=== PATIENT | male | born 1965 | race Caucasian/White ===

== ENCOUNTER 2019-06-01 17:34 | Emergency (ER) | payer SELFPAY ==
[~2019-06-01] VITALS: Ht 177.8 cm; Wt 74.8 kg
[2019-06-01] MEDS ORDERED: IV NORMAL SALINE 1,000ML 1,000 ML IV ONE (18:15)
--- NOTE | 2019-06-01 18:28 | PHYS DOC ---
Adult General Chief Complaint Chief Complaint: NOSEBLEED [facility] HPI 54-year-old male presents with nosebleed. The patient states that his nose is swollen and just started bleeding spontaneously. There is a picture of blood on the tile floor at his house. The patient denies any falls, but has a 1 cm laceration in his lower lip. He tells me he does not know how he got a laceration on his lip. His significant other does not know what happened. The patient is alert, oriented, answering all questions appropriately. He denies numbness, tingling, altered sensation. His nose is no longer bleeding. The patient has no other complaints. Review of Systems Review of Systems Constitutional: Denies fever or chills [] Eyes: Denies change in visual acuity, redness, or eye pain [] HENT: Nosebleed, laceration lower lip[] Respiratory: Denies cough or shortness of breath [] Cardiovascular: No additional information not addressed in HPI [] GI: Denies abdominal pain, nausea, vomiting, bloody stools or diarrhea [] : Denies dysuria or hematuria [] Musculoskeletal: Denies back pain or joint pain [] Integument: Denies rash or skin lesions [] Neurologic: Denies headache, focal weakness or sensory changes [] Endocrine: Denies polyuria or polydipsia [] All other systems were reviewed and found to be within normal limits, except as documented in this note. Current Medications Current Medications Current Medications Medications (Trade) Dose Ordered Sig/Janell Start Time Stop Time Status Last Admin Dose Admin Sodium Chloride 1,000 ml @ 1,000 mls/hr 1X ONCE 06/01/19 18:15 06/01/19 19:14 Allergies Allergies Allergies Coded Allergies Type Severity Reaction Last Updated Verified diphenhydramine Allergy Unknown Hives 06/01/19 Yes lisinopril Allergy Unknown Anaphylaxis 06/01/19 Yes Uncoded Allergies Type Severity Reaction Last Updated Verified benadr Allergy Unknown Hives 06/01/19 Physical Exam Physical Exam Constitutional: Well developed, well nourished, no acute distress, non-toxic appearance. [] HENT:Appears mildly swollen, no obvious deformity. Recently dried blood in bilateral nares. 1 cm laceration of the lower lip within the vermilion border. Not bleeding.[] Eyes: PERRLA, EOMI, conjunctiva normal, no discharge. [] Neck: Normal range of motion, no tenderness, supple, no stridor. [] Cardiovascular:Heart rate regular rhythm, no murmur [] Lungs & Thorax: Bilateral breath sounds clear to auscultation [] Abdomen: Bowel sounds normal, soft, no tenderness, no masses, no pulsatile masses. [] Skin: Warm, dry, no erythema, no rash. [] Back: No tenderness, no CVA tenderness. [] Extremities: No tenderness, no cyanosis, no clubbing, ROM intact, no edema. [] Neurologic: Alert and oriented X 3, normal motor function, normal sensory function, no focal deficits noted. [] Psychologic: Affect normal, judgement normal, mood normal. [] EKG EKG [] Radiology/Procedures Radiology/Procedures [] Impressions: Preliminary interpretation facial x-rays: No acute fractures are seen. Course & Med Decision Making Course & Med Decision Making Pertinent Labs and Imaging studies reviewed. (See chart for details) The patient appears to have fallen or been hit with something. He denies this. He is acting appropriately. He does not complain of any neck pain. He has no altered sensation. He could be intoxicated, but is able to answer all questions appropriately and has ambulated without difficulty. The patient does not want me to repair his lip laceration. I will order basic labs and facial x-rays. He is tachycardic as well so I will give him some IV fluids. He has refused further workup at this time. The patient's labs are significant or elevated liver enzymes and MCV. Suspect the patient regularly drinks alcohol despite his denial. He is clinically sober enough to go home. His facial x-rays are unremarkable. Since he does not want me to repair his laceration, he is stable for discharge at this time. [] Dragon Disclaimer Dragon Disclaimer This electronic medical record was generated, in whole or in part, using a voice recognition dictation system. Departure Departure: Impression: Primary Impression: Acute anterior epistaxis Additional Impression: Laceration of lower lip Disposition: HOME, SELF-CARE Condition: STABLE Referrals: LISA ZARATE (PCP) Patient Instructions: Facial Laceration, [id number], Nosebleed, [id number] Problem Qualifiers Additional Impression: Laceration of lower lip Encounter type: initial encounter Qualified Codes: S01.511A - Laceration without foreign body of lip, initial encounter KIRILL YOUNG DO Jun 01, 2019 18:28
[2019-06-01 18:55] LABS: BASO % 0 % (0-3); EOS % 0 % (0-3); HEMATOCRIT 46.4 % (39.0-53.0); HEMOGLOBIN 15.8 g/dL (13.0-17.5); LYMPH # 1.5 x10^3/uL (1.0-4.8); LYMPH % 14 % (24-48); MEAN CORPUSCULAR HEMOGLOBIN 37 pg (25-35); MEAN CORPUSCULAR HGB CONC 34 g/dL (31-37); MEAN CORPUSCULAR VOLUME 108 fL (79-100); MONO % 10 % (0-9); NEUT # 7.9 x10^3uL (1.8-7.7); NEUT % 76 % (31-73); PLATELET COUNT 327 x10^3/uL (140-400); RED BLOOD COUNT 4.29 x10^6/uL (4.30-5.70); RED CELL DISTRIBUTION WIDTH 13.1 % (11.5-14.5); WHITE BLOOD COUNT 10.4 x10^3/uL (4.0-11.0)
[2019-06-01] MEDS ORDERED: DIPHTH,PERTUSS(ACELL),TET TOX 0.5 ML DISP.SYRIN. VAX IM ONE (19:00)
[2019-06-01 19:04] VITALS: BP 133/99
[2019-06-01 19:15] LABS: ALBUMIN/GLOBULIN RATIO 0.8 (1.0-1.7); CALCIUM 8.4 mg/dL (8.5-10.1); GFR 77.3; POTASSIUM 3.8 mmol/L (3.5-5.1); TOTAL BILIRUBIN 0.4 mg/dL (0.2-1.0); TOTAL PROTEIN 6.9 g/dL (6.4-8.2)
--- NOTE | 2019-06-02 00:51 | RAD ---
Examination: 3 views of the facial bones HISTORY: History of fall, bloody nose COMPARISON: None available Findings/ impression: The visualized paranasal sinuses appear unopacified. No evidence of displaced nasal bone fracture identified.. Electronically signed by: Terrell Koroma MD (06/02/2019 12:48 AM) [facility]
== END 2019-06-01 18:45 | disposition home or self-care (01) ==
LOC: ER 17:34
DX: S01.511A Laceration without foreign body of lip, initial encounter (principal); X58.XXXA Exposure to other specified factors, initial encounter; Y93.89 Activity, other specified; Y92.89 Other specified places as the place of occurrence of the external cause; Y99.8 Other external cause status; R04.0 Epistaxis; Z88.8 Allergy status to other drugs, medicaments and biological substances
CPT/HCPCS: 36415; 70150; 80053; 85025; 90471; 90715; 99285-25; J7030

== ENCOUNTER 2020-06-13 15:57 | Emergency (ER) | payer SELFPAY ==
[~2020-06-13] VITALS: Ht 179.1 cm; Wt 72.7 kg
--- NOTE | 2020-06-13 16:14 | PHYS DOC ---
Past History Past Medical History: Hypertension Past Surgical History: Other Additional Past Surgical Histo: right foot crush injury with hardware. Alcohol Use: Occasionally Drug Use: Marijuana Adult General Chief Complaint Chief Complaint: HEAD INJURY/TRAUMA HPI HPI Patient is a 55-year-old male who presents for mechanical fall and subsequent laceration to right head. Onset was within 30 minutes prior to arrival. Was ambulating down stairs when he tripped on shoelace and fell down approximately 6 stairs, he caught his body initially with his left hand but then hit his right temporal lobe area on wooden trim of the window frame. No loss of consciousness, confusion, seizure or memory impairment reported but patient admitted headache and blood loss that resolved after approximately 15 minutes of steady pressure. States he lost less than 4 ounces of overall blood patient reports ongoing headache, and generalized neck pain without any other concerning signs or symptoms such as vomiting, numbness and weakness or fever. Is not on any blood thinners. Vaccines are up-to-date. Review of Systems Review of Systems Fourteen body systems of review of systems have been reviewed. See HPI for pertinent positives and negative responses, other maddox all other systems are negative, non-pertinent or non-contributory Allergies Allergies Allergies Coded Allergies Type Severity Reaction Last Updated Verified diphenhydramine Allergy Unknown Hives 06/13/20 Yes lisinopril Allergy Unknown Anaphylaxis 06/13/20 Yes Uncoded Allergies Type Severity Reaction Last Updated Verified benadr Allergy Unknown Hives 06/01/19 Physical Exam Physical Exam Constitutional: Pt is oriented to person, place, and time. Pt appears well-developed and well- nourished. HEENT: Head: Normocephalic, 5 cm right temporal scalp laceration with mild hematoma present, no palpable crepitus or foreign body. TMs clear, no hemotympanum, negative gutierrez sound Conjunctivae and EOM are normal. Pupils are equal, round, and reactive to light. Oropharynx is clear and moist. No hematomas or lacerations or abrasions to face or scalp OP clear, no blood, no malocclusion, dentition intact Nares clear, no nasal septal hematoma Midface stable Neck: C-spine midline nontender, no step-offs Cardiovascular: Normal rate, regular rhythm and normal heart sounds. Pulmonary/Chest: Effort normal and breath sounds normal. No respiratory distress. No wheezes. CTA bilaterally Abdominal: Soft. Bowel sounds are normal. Pt exhibits no distension. There is no tenderness. Musculoskeletal: No bony tenderness to extremities, no deformities, full ROM extremities Chest wall stable Pelvis stable and non-tender No vertebral TTP and spine without stepoffs Neurological: Pt is alert and oriented to person, place, and time. Moving all extremities willfully, able to wiggle all fingers and toes Alert and oriented x 3 Cranial nerves II through XII intact Sensation grossly intact Skin: Skin is warm and dry. No abrasions, no lacerations Psychiatric: Behavior is appropriate for situation Current Patient Data Vital Signs Vital Signs Date Time Temp Pulse Resp B/P (MAP) Pulse Ox O2 Delivery O2 Flow Rate FiO2 06/13/20 18:09 94 18 150/119 (129) 96 Room Air 06/13/20 16:00 99.6 EKG EKG [] Radiology/Procedures Radiology/Procedures INDICATION: Fall. COMPARISON: None. TECHNIQUE: Axial CT imaging through the head and cervical spine without the use of intravenous contrast. Sagittal and coronal reformats were obtained. One or more of the following individualized dose reduction techniques were utilized for this examination: 1. Automated exposure control 2. Adjustment of the mA and/or kV according to patient size 3. Use of iterative reconstruction technique. FINDINGS: CT head: No acute intracranial hemorrhage. No mass effect or midline shift. Maintained green-white matter differentiation. Parenchymal volume loss with ex vacuo ventricular prominence. Intracranial calcific atherosclerosis. White matter findings most likely on account of chronic microvascular ischemic change. Right temporal parietal scalp contusion/laceration. Unremarkable visualized orbits. No depressed calvarial fracture. Normally aerated mastoid air cells, middle ears and visualized paranasal sinuses. CT cervical spine: A tiny ossific fragment off the anteroinferior/right lateral aspect of C6 could potentially be acute given faint prevertebral fatty stranding at this level, image 84 series 4. Mild superior endplate height loss at T1 and irregularity of the anterior/superior cortex, image 29 series 8, could be a minimal ventral compression deformity. Favored chronic bony irregularity at the tip of the right C7 facet, image 38 series 8, given the absence of adjacent soft tissue sequela of trauma. Ossific foci ventral to the C3-C4 through C5-C6 disc spaces exhibit a more chronic appearance. No traumatic malalignment. Scattered facet degeneration, uncovertebral joint hypertrophy and mild discogenic arthrosis. No severe osseous central canal or neural foraminal stenosis. Scattered surgical changes along right aspect of the neck. Mild calcific atherosclerosis. IMPRESSION: CT head: 1. No acute intracranial abnormality by CT. 2. Right temporoparietal scalp contusion/laceration without an associated depressed calvarial fracture. CT cervical spine: 1. Faint anterior/superior vertebral body height loss at T1 and a small ossific fragment at the anteroinferior/right lateral corner of C6. These could represent subtle acute fractures given trauma and no comparison exams to determine stability. Correlate for lower cervical/upper thoracic spine tenderness. No traumatic malalignment. Electronically signed by: SALINA MASTERS MD (06/13/2020 5:27 PM) [facility] Heart Score HEART Score for Chest Pain: HEART Score for Chest Pain Response (Comments) Value History Slighlty/Non-Suspicious 0 Age >45 - < 65 1 Risk Factors 1 or 2 Risk Factors 1 Total 2 Risk Factors: Risk Factors: DM, Current or recent (<one month) smoker, HTN, HLP, family history of CAD, obesity. Risk Scores: Risk Factors: DM, Current or recent (<one month) smoker, HTN, HLP, family history of CAD, obesity. Course & Med Decision Making Course & Med Decision Making Patient had a laceration that was repaired in the ED after copious irrigation. After exploration of the wound, there was no evidence of a retained foreign body. No evidence of underlying fracture after unremarkable CT head and neck imaging TDAP: UTD Interventions: Defer ABX at this time given location, event time, and patient without surrounding signs of infection. Disposition: Discharge. Patient has been given strict wound return precautions and instructions to follow up with their PCP for a wound recheck and suture removal in 7 to 10 days Dragon Disclaimer Dragon Disclaimer This electronic medical record was generated, in whole or in part, using a voice recognition dictation system. Laceration Repair Lac Repair Indication: Laceration to left scalp Procedure: Patient was placed in appropriate position and wound was irrigated copiously. Site was then prepped with alcohol wipes and 6 cc of 2% lidocaine without epinephrine were administered with significant anesthesia accomplished. A total of x8 simple interrupted sutures were applied using 4.0 Prolene suture with great wound closure. The wound was then dressed appropriately and prepped ready for discharge Total repaired wound length: 5 cm. Other Items: None The patient tolerated the procedure well without any observed and/or reported complications Departure Departure: Impression: Primary Impression: Fall Additional Impression: Laceration of head without foreign body Disposition: 01 DC HOME SELF CARE/HOMELESS Condition: STABLE Referrals: LISA ZARATE (PCP) Patient Instructions: Fall Prevention and Home Safety, Laceration Care, Adult Additional Instructions: You were seen for a laceration. Keep the area clean and dry. You should return to the ED or your PCP office to get your sutures removed in 7-10 days. Return to the ED immediately if you develop any signs of infection like increased pain, redness, fever, or purulent (pus) drainage. Do not take baths, submerge the wound, or use a hot tub until your stitches are removed and the wound is healed. Problem Qualifiers REMBERTO GIRON DO Jun 13, 2020 16:14
[2020-06-13] MEDS ORDERED: LIDOCAINE 2% 20 ML VIAL. ONE (17:28)
--- NOTE | 2020-06-13 17:29 | RAD ---
STUDY: CT head and cervical spine without contrast INDICATION: Fall. COMPARISON: None. TECHNIQUE: Axial CT imaging through the head and cervical spine without the use of intravenous contra st. Sagittal and coronal reformats were obtained. One or more of the following individualized dose reduction techniques were utilized for this examinat ion: 1. Automated exposure control 2. Adjustment of the mA and/or kV according to patient size 3. Use of iterative reconstruction technique. FINDINGS: CT head: No acute intracranial hemorrhage. No mass effect or midline shift. Maintained green-white matter diffe rentiation. Parenchymal volume loss with ex vacuo ventricular prominence. Intracranial calcific ather osclerosis. White matter findings most likely on account of chronic microvascular ischemic change. Right temporal parietal scalp contusion/laceration. Unremarkable visualized orbits. No depressed calv arial fracture. Normally aerated mastoid air cells, middle ears and visualized paranasal sinuses. CT cervical spine: A tiny ossific fragment off the anteroinferior/right lateral aspect of C6 could potentially be acute given faint prevertebral fatty stranding at this level, image 84 series 4. Mild superior endplate hei ght loss at T1 and irregularity of the anterior/superior cortex, image 29 series 8, could be a minima l ventral compression deformity. Favored chronic bony irregularity at the tip of the right C7 facet, image 38 series 8, given the absence of adjacent soft tissue sequela of trauma. Ossific foci ventral to the C3-C4 through C5-C6 disc spaces exhibit a more chronic appearance. No traumatic malalignment. Scattered facet degeneration, uncovertebral joint hypertrophy and mild dis cogenic arthrosis. No severe osseous central canal or neural foraminal stenosis. Scattered surgical changes along right aspect of the neck. Mild calcific atherosclerosis. IMPRESSION: CT head: 1. No acute intracranial abnormality by CT. 2. Right temporoparietal scalp contusion/laceration without an associated depressed calvarial fractu re. CT cervical spine: 1. Faint anterior/superior vertebral body height loss at T1 and a small ossific fragment at the ante roinferior/right lateral corner of C6. These could represent subtle acute fractures given trauma and no comparison exams to determine stability. Correlate for lower cervical/upper thoracic spine tendern ess. No traumatic malalignment. Electronically signed by: SALINA MASTERS MD (06/13/2020 5:27 PM) [facility]
[2020-06-13 18:09] VITALS: BP 150/119
== END 2020-06-13 18:15 | disposition home or self-care (01) ==
LOC: ER 15:57
DX: S01.01XA Laceration without foreign body of scalp, initial encounter (principal); F12.10 Cannabis abuse, uncomplicated; I10 Essential (primary) hypertension; W01.0XXA Fall on same level from slipping, tripping and stumbling without subsequent striking against object, initial encounter; Y93.89 Activity, other specified; Y99.8 Other external cause status; Y92.89 Other specified places as the place of occurrence of the external cause
CPT/HCPCS: 12002; 70450; 72125; 99284-25; 99285-25

== ENCOUNTER 2020-06-19 07:33 | Emergency (ER) | payer SELFPAY ==
[~2020-06-19] VITALS: Ht 177.8 cm; Wt 72.7 kg
[2020-06-19] MEDS ORDERED: NEOMY/BACITR/POLYMYXIN OINT PACKET. TP ONE (07:45)
[2020-06-19] MEDS ORDERED: MVI, ADULT NO.4 WITH VIT K 10 ML, FOLIC ACID INJ 1 MG, THIAMINE INJ 100 MG in IV NORMAL... IV ONE (07:45)
[2020-06-19] MEDS ORDERED: LIDOCAINE 2%/EPI 1:100,000 20 ML VIAL. IJ ONE (07:45)
[2020-06-19 08:09] LABS: BASO % 1 % (0-3); EOS # 0.2 x10^3/uL (0.0-0.7); EOS % 3 % (0-3); HEMATOCRIT 37.4 % (39.0-53.0); HEMOGLOBIN 12.3 g/dL (13.0-17.5); LYMPH # 2.7 x10^3/uL (1.0-4.8); LYMPH % 46 % (24-48); MEAN CORPUSCULAR HEMOGLOBIN 37 pg (25-35); MEAN CORPUSCULAR HGB CONC 33 g/dL (31-37); MEAN CORPUSCULAR VOLUME 112 fL (79-100); MONO # 0.5 x10^3/uL (0.0-1.1); MONO % 9 % (0-9); NEUT # 2.4 x10^3uL (1.8-7.7); NEUT % 42 % (31-73); PLATELET COUNT 309 x10^3/uL (140-400); RED BLOOD COUNT 3.36 x10^6/uL (4.30-5.70); RED CELL DISTRIBUTION WIDTH 16.1 % (11.5-14.5); WHITE BLOOD COUNT 5.8 x10^3/uL (4.0-11.0)
[2020-06-19 08:15] LABS: CALCIUM 8.4 mg/dL (8.5-10.1); CREATININE 1.3 mg/dL (0.7-1.3); GFR 56.9
--- NOTE | 2020-06-19 08:15 | PHYS DOC ---
Past History Past Medical History: Hypertension Past Surgical History: Other Additional Past Surgical Histo: right foot crush injury with hardware. Smoking: Quit Greater Than 1 Year (Smoked from 11 years old to 38 years old) Alcohol Use: Occasionally Drug Use: Marijuana General Adult EDM: Chief Complaint: Head laceration HPI: HPI: Patient is a 55 year old male who presents with CC fall and head laceration. Pt lives with his mother who found him in the bathroom after an unknown period of time. Pt was recently seen in the ED and received seven stitches on right posterior head after a fall. Pt is a poor historian, but reports drinking atleast a "fishbowl moshe" last night before falling. Pt does not remember hitting head. 1.5 liters blood loss per EMS originating from head laceration. Pt has lower torso covered in dried blood on presentation to ED. Review of Systems: Review of Systems: Constitutional: Denies fever or chills Eyes: Denies redness or eye pain HENT: Denies nasal congestion or sore throat Respiratory: Denies cough or shortness of breath Cardiovascular: Denies chest pain or palpitations GI: Denies abdominal pain, nausea, or vomiting : Denies dysuria or hematuria Musculoskeletal: Denies back pain or joint pain Integument: Denies rash or skin lesions Neurologic: Denies headache, focal weakness or sensory changes Complete systems were reviewed and found to be within normal limits, except as documented in this note. Current Medications: Current Meds: Current Medications Medications (Trade) Dose Ordered Sig/Janell Start Time Stop Time Status Last Admin Dose Admin Lidocaine/ Epinephrine (Xylocaine 2%-Epi 1:100,000) 20 ml 1X ONCE 06/19/20 07:45 06/19/20 07:46 UNV Multivitamins/ Minerals 10 ml/ Folic Acid 1 mg/ Thiamine HCl 100 mg/Sodium Chloride 1,011.3 ml @ 1,000.187 mls/hr 1X ONCE 06/19/20 07:45 06/19/20 08:45 UNV Neomycin/ Polymyxin/ Bacitracin (Triple Antibiotic Ointment) 1 pkt 1X ONCE 06/19/20 07:45 06/19/20 07:46 UNV Allergies: Allergies: Allergies Coded Allergies Type Severity Reaction Last Updated Verified diphenhydramine Allergy Unknown Hives 06/13/20 Yes lisinopril Allergy Unknown Anaphylaxis 06/13/20 Yes Uncoded Allergies Type Severity Reaction Last Updated Verified benadr Allergy Unknown Hives 06/01/19 Physical Exam: PE: Constitutional: Well developed, well nourished, no acute distress, inebriated HENT: Normocephalic, Left occipital 3.5cm laceration Eyes: PERRL, EOMI, conjunctiva normal, no discharge Neck: Normal range of motion, no tenderness, supple Lungs & Thorax: No respiratory distress, equal chest rise and fall Abdomen: Soft, no tenderness Skin: Warm, dry, no erythema, no rash Back: No tenderness, no CVA tenderness Extremities: No tenderness, ROM intact, no edema Neurologic: GCS 14. Alert and Oriented X2. Psychologic: Affect normal, judgment normal EKG: EKG: Sinus Rhythm. No ST elevation OR interval: 160ms QRS: 82ms QT:374ms QTc: 479ms[] Radiology/Procedures: Radiology/Procedures: PROCEDURE: CT HEAD AND CERVICAL SPINE WO EXAM: CT head and cervical spine without contrast INDICATION: Head and neck pain scalp hematoma. COMPARISON: CT head and C-spine 06/13/2020 TECHNIQUE: Axial CT imaging through the head and cervical spine without intravenous contrast. Sagittal and coronal reformats were obtained. One or more of the following individualized dose reduction techniques were utilized for this examination: 1. Automated exposure control 2. Adjustment of the mA and/or kV according to patient size 3. Use of iterative reconstruction technique. FINDINGS: CT head: The ventricles and sulci are mildly enlarged. There is mild periventricular and deep white matter hypoattenuation. Ham-white matter differentiation is maintained. There is no intracranial hemorrhage, acute infarct, or mass lesion. Basal cisterns are clear. There is a new left parietal occipital scalp laceration and hematoma. The right temporoparietal scalp hematoma is unchanged. No acute fracture. The visualized paranasal sinuses and mastoid air cells are clear. Globes and orbits are intact. CT cervical spine: A T1 compression fracture with approximately 30 percent vertebral body height loss anteriorly and no retropulsion of cortex is unchanged. Tiny right anterior inferior corner fracture of C6 is unchanged. No new fracture. There is mild disc space narrowing and small anterior osteophytes throughout the cervical spine. Alignment is normal. Mild facet arthrosis at several levels. No significant canal or foraminal narrowing. There are surgical clips in the right neck. IMPRESSION: 1. No acute intracranial abnormality. 2. New left occipitoparietal scalp laceration/hematoma. Unchanged small right temporoparietal scalp hematoma. 3. Mild T1 compression fracture and tiny fracture at the anterior-inferior corner of C6 are unchanged from 06/13/2020. No new fracture of the cervical spine. Electronically signed by: Lorna White MD (06/19/2020 8:26 AM) [id number] Course & Med Decision Making: Course & Med Decision Making Pt presented to ED with CC head laceration/bleeding after fall. Pt admitted to drinking atleast a minimum of one "fishbowl moshe" last night before falling. Alcohol level 291. Pt does not take any anticoagulant or antiplatelet medications.1.5 liter of blood loss per ems. Nexus criteria could not be met and Cervical collar placed. CT head ordered. NS Fluid resuscitation with thiamine and added vitamins. 2-5 RBCs on UA represent contaminant from head laceration. Albumin low likely malnutrition. Will follow CBC/CMP/COAGS/UA/CPK/Troponins. Cervical collar removed after pt became clinically sober and negative CT results. [address] vira [address] Spoke with Dr. James mendez MACHINE FEEDER who reccomends soft collar for comfort and f/u x-rays in a week with neurosurgery or PCP [] Austin Disclaimer: [place] Disclaimer: This electronic medical record was generated, in whole or in part, using a voice recognition dictation system. Laceration/Wound Repair Laceration/Wound Repair : Wound Location: head (left occiput) Wound's Depth, Shape: linear Wound Length (cm): 4 Wound Explored: no foreign body removed Anesthesia: Lidocaine w/ Epi (2%) Volume Anesthetic (ccs): 8 Wound Debrided: moderate Sterile Dressing Applied?: Yes Progress Verbal consent obtained. Time out performed. Hand hygiene utilized. Wound chase tyrone and debrided with hydrogen peroxide. Anesthesia obtained via a 25-gauge hypodermic needle with (8) mL's of lidocaine 2% with epinephrine. Wound well approximated with vira x 7. Patient tolerated procedure well and without difficulty. Empiric antibiotic ointment applied prior to sterile dressing. Departure Departure: Impression: Primary Impression: Occipital scalp laceration Qualified Codes: S01.01XA - Laceration without foreign body of scalp, initial encounter Additional Impressions: Traumatic hematoma of scalp Qualified Codes: S00.03XA - Contusion of scalp, initial encounter Closed C6 fracture Qualified Codes: S12.500A - Unspecified displaced fracture of sixth cervical vertebra, initial encounter for closed fracture Compression fracture of T1 vertebra Qualified Codes: S22.010A - Wedge compression fracture of first thoracic vertebra, initial encounter for closed fracture Alcohol intoxication Qualified Codes: F10.929 - Alcohol use, unspecified with intoxication, unspecified Disposition: 01 DC HOME SELF CARE/HOMELESS Condition: STABLE Referrals: LISA ZARATE (PCP) Patient Instructions: Alcohol Intoxication, [id number], Alcohol and Drug Addiction, Finding Treatment, Back, Compression Fracture, Cervical Spine Fracture, Stable, How Much is Too Much Alcohol, [id number], Laceration Care, Adult, [id number], Scalp Hematoma Additional Instructions: Please call [facility] at to seek help for your mental health and/or drug/alcohol abuse. Do not soak your wound. You may shower. Clean wound daily with soap and water. Change dressing 2 times daily. Use over the counter antibiotic ointment with each dressing change. Elba need to be removed in 7 days. Present to your family doctor or local urgent care for removal. You may also present to the ED but it will be an additional visit/charge. Please follow up with your doctor or Neurosurgeon- Dr. Joaquín Whitten for repeat x-rays for cervical and thoracic spine in 1 week for further evaluation of fractures. You may wear soft collar as needed for pain. Joaquín Whitten MD (Neurosurgery) [address], [facility] [address] [place] [address] TANG CERVANTES DO Jun 19, 2020 08:15
[2020-06-19 08:42] LABS: ALBUMIN 2.8 g/dL (3.4-5.0); ALBUMIN/GLOBULIN RATIO 0.8 (1.0-1.7); MAGNESIUM 1.8 mg/dL (1.8-2.4); TOTAL BILIRUBIN 0.1 mg/dL (0.2-1.0); TOTAL PROTEIN 6.1 g/dL (6.4-8.2)
[2020-06-19 08:49] LABS: PLT ESTIMATE ADEQUATE (ADEQUATE); POLYCHROMASIA PRESENT; TOXIC GRANULATION PRESENT
[2020-06-19 08:50] LABS: ANISOCYTOSIS SLIGHT; OVALOCYTES PRESENT
[2020-06-19 08:51] LABS: BARBITURATES NEG (NEG); BENZODIAZEPINES POS (NEG); CANNABINOIDS NEG (NEG); COCAINE NEG (NEG); METHADONE NEG (NEG); OPIATES NEG (NEG); PHENCYCLIDINE NEG (NEG)
[2020-06-19 08:52] LABS: AMPHETAMINE/METHAMPHETAMINE NEG (NEG)
[2020-06-19 08:57] LABS: BACTERIA,URINE 0 /HPF (0-FEW); BILIRUBIN,URINE NEG (NEG); CLARITY,URINE CLEAR; COLOR,URINE YELLOW; GLUCOSE,URINE NEG (NEG); NITRITE,URINE NEG (NEG); SQUAMOUS EPITHELIAL CELL,UR OCC /LPF; UROBILINOGEN,URINE 0.2 mg/dL (0.2 mg/dL); WBC,URINE RARE /HPF (0-4)
--- NOTE | 2020-06-19 09:58 | EKG ---
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
--- NOTE | 2020-06-19 10:22 | RAD ---
EXAM: CT head and cervical spine without contrast INDICATION: Head and neck pain scalp hematoma. COMPARISON: CT head and C-spine 06/13/2020 TECHNIQUE: Axial CT imaging through the head and cervical spine without intravenous contrast. Sagitta l and coronal reformats were obtained. One or more of the following individualized dose reduction techniques were utilized for this examinat ion: 1. Automated exposure control 2. Adjustment of the mA and/or kV according to patient size 3. Use of iterative reconstruction technique. FINDINGS: CT head: The ventricles and sulci are mildly enlarged. There is mild periventricular and deep white matter hyp oattenuation. Ham-white matter differentiation is maintained. There is no intracranial hemorrhage, acute infarct, or mass lesion. Basal cisterns are clear. There is a new left parietal occipital scalp laceration and hematoma. The right temporoparietal scalp hematoma is unchanged. No acute fracture. The visualized paranasal sinuses and mastoid air cells are clear. Globes and orbits are intact. CT cervical spine: A T1 compression fracture with approximately 30 percent vertebral body height loss anteriorly and no retropulsion of cortex is unchanged. Tiny right anterior inferior corner fracture of C6 is unchanged. No new fracture. There is mild disc space narrowing and small anterior osteophytes throughout the ce rvical spine. Alignment is normal. Mild facet arthrosis at several levels. No significant canal or fo raminal narrowing. There are surgical clips in the right neck. IMPRESSION: 1. No acute intracranial abnormality. 2. New left occipitoparietal scalp laceration/hematoma. Unchanged small right temporoparietal scalp h ematoma. 3. Mild T1 compression fracture and tiny fracture at the anterior-inferior corner of C6 are unchanged from 06/13/2020. No new fracture of the cervical spine. Electronically signed by: Lorna White MD (06/19/2020 8:26 AM) [id number]
[2020-06-19 11:35] VITALS: BP 113/83
== END 2020-06-19 12:19 | disposition home or self-care (01) ==
LOC: ER 07:33
DX: S22.010A Wedge compression fracture of first thoracic vertebra, initial encounter for closed fracture (principal); S12.500A Unspecified displaced fracture of sixth cervical vertebra, initial encounter for closed fracture; S01.01XA Laceration without foreign body of scalp, initial encounter; F10.229 Alcohol dependence with intoxication, unspecified; I10 Essential (primary) hypertension; Z87.891 Personal history of nicotine dependence; Z88.8 Allergy status to other drugs, medicaments and biological substances; Y90.8 Blood alcohol level of 240 mg/100 ml or more; W18.39XA Other fall on same level, initial encounter; Y93.89 Activity, other specified; Y92.89 Other specified places as the place of occurrence of the external cause; Y99.8 Other external cause status
CPT/HCPCS: 12002; 36415; 70450; 72125; 80053; 80307; 81001; 82553; 83735; 84484; 85025; 85610; 85730; 93005; 96365; 99285; G0480; J7030